=== PATIENT | female | born 1950 | race Caucasian/White ===

== ENCOUNTER 2016-10-16 15:39 | Outpatient (CLI) | payer OTHER ==
--- NOTE | 2016-10-16 16:48 | DIAGNOSTIC IMAGING REPORT ---
PROCEDURE: US COMPLETE PELVIC W/TRANSVAG INDICATION: POST MENOPAUSAL BLEEDING TECHNIQUE: Transabdominal and endovaginal taylor scale and color Doppler sonographic images of the female pelvis were obtained. COMPARISON: None. FINDINGS: TRANSABDOMINAL SCANS: Uterine contour is difficult to see. Uterus appears grossly vertically oriented. No suspicious adnexal masses. The visible portion of the urinary bladder is within normal limits. TRANSVAGINAL SCANS: The uterus is anteverted in position and has a heterogeneous myometrial echotexture. Nabothian cysts in the cervix. The uterus measures approximately 4.9 x 3.0 x 4.0 cm. The endometrium is very indistinct and the junctional zone is irregular. There may be a vague rounded mass within the fundal endometrium measuring approximately 18 mm. The endometrium could measure up to 18 mm in thickness. Grossly normal vascularity to the uterus. No significant hypervascularity to the endometrium. The right ovary measures 2.2 x 1.8 x 1.2 cm and has a normal echotexture. There is normal arterial and venous ovarian flow present. The left ovary measures 2.1 x 1.9 x 1.6 cm and also has a normal echotexture and normal vascularity. No suspicious adnexal masses or free pelvic fluid. IMPRESSION: 1. Abnormal mass-like thickening in the fundal endometrium suspicious for mass. Further evaluation with contrast enhanced pelvic MRI is recommended. 2. Age appropriate ovaries.
== END 2016-10-16 23:00 ==
LOC: US SRH 15:39
DX: N95.0 Postmenopausal bleeding (principal); R93.8 Abnormal findings on diagnostic imaging of other specified body structures